=== PATIENT | female | born 1970 | race American Indian/Alaskan Native ===

== ENCOUNTER 2021-11-18 07:06 | Emergency (ER) | payer MEDICAID ==
[2021-11-18] MEDS ORDERED: Promethazine 12.5 MG in Sodium Chloride 0.9% 50 ML IV PRN (07:19)
[2021-11-18] MEDS ORDERED: LORazepam 2 MG/ML SDV IVPUSH ONE (07:19)
[2021-11-18] MEDS ORDERED: Thiamine 100 MG, Magnesium Sulfate 2 GM, MVI, Adult with Vitamin K 10 ML, Folic Acid 1 ... IV ONE ×5 (07:21)
[2021-11-18] MEDS ORDERED: Sodium Chloride 0.9% 10 ML Syringe FLUSH PRN (07:21)
[2021-11-18] MEDS ORDERED: Pantoprazole 40 MG Vial IVPUSH ONE (07:24)
[2021-11-18] MEDS ORDERED: Lactated Ringers 1,000 ML IV SCH (07:30)
[2021-11-18 12:30] LABS: CORONAVIRUS COVID-19 NAA NEGATIVE (NEGATIVE)
== END 2021-11-18 18:33 | disposition home or self-care (01) ==
LOC: JP.ED 07:06
DX: F10.129 Alcohol abuse with intoxication, unspecified (principal); F41.9 Anxiety disorder, unspecified; Y90.6 Blood alcohol level of 120-199 mg/100 ml; Z20.822 Contact with and (suspected) exposure to COVID-19
CPT/HCPCS: 0241U; 36415; 80053; 80305; 80307; 81001; 83690; 85025; 96365; 96366; 96375; 99284; C9113; J2060; J2550; J3411; J3475; J7042; J7120; J3490